=== PATIENT | female | born 1990 | race African-American/Black ===

== ENCOUNTER 2017-12-29 12:33 | Emergency (ER) | payer SELFPAY ==
[~2017-12-29] VITALS: Ht 172.7 cm; Wt 118.0 kg
[2017-12-29] MEDS ORDERED: KETOROLAC 60MG/2ML VIAL IM ONE (22:30)
[2017-12-29] MEDS ORDERED: METHOCARBAMOL 750MG TABLET PO ONE (22:30)
[2017-12-29] MEDS ORDERED: PREDNISONE 20MG TABLET PO ONE (22:30)
[2017-12-29 23:50] VITALS: BP 155/85
== END 2017-12-29 23:55 | disposition home or self-care (01) ==
LOC: ER 13:15
DX: M54.30 Sciatica, unspecified side (principal); F17.200 Nicotine dependence, unspecified, uncomplicated
CPT/HCPCS: 96372; 99283; J1885; J7030; J7512

== ENCOUNTER 2018-06-20 17:07 | Emergency (ER) | payer MEDICAID, OTHER ==
[~2018-06-20] VITALS: Ht 172.7 cm; Wt 104.0 kg
[2018-06-20 21:35] LABS: CLARITY URINE CLEAR (CLEAR); COLOR URINE YELLOW (YELLOW); KETONES URINE TRACE (NEGATIVE); LEUKOCYTE ESTERASE URINE NEGATIVE (NEGATIVE); NITRITE URINE NEGATIVE (NEGATIVE); OCCULT BLOOD URINE NEGATIVE (NEGATIVE); PH URINE 6.5 (4.5-8.0); PROTEIN URINE NEGATIVE (NEGATIVE); SPECIFIC GRAVITY URINE 1.021 (1.005-1.030); UROBILINOGEN URINE 0.2 E.U./dL (0.2-1.0)
[2018-06-20] MEDS ORDERED: ONDANSETRON HCL 4MG/2ML INJ IV STA (21:44)
[2018-06-20] MEDS ORDERED: MORPHINE SULFATE 4 MG/ML CPJ (NOT FOR IM USE) IV STA (21:44)
[2018-06-20] MEDS ORDERED: SODIUM CHLORIDE 0.9% 1,000 ML IV ONE (21:44)
[2018-06-20 23:05] LABS: BASOPHILS % 0.7 % (0.0-2.0); CHLORIDE 103 mEq/L (98-107); EOSINOPHILS % 0.8 % (0.0-5.0); HEMATOCRIT. 36.5 % (36.0-48.0); HEMOGLOBIN. 11.8 g/dL (12.0-16.0); MEAN CORPUSCULAR HEMOGLOBIN 26.8 pg (28.0-32.0); MEAN CORPUSCULAR VOLUME 83.1 fL (81.0-99.0); MEAN PLATELET VOLUME 8.3 fl (7.4-10.4); MONOCYTES % 5.3 % (2.0-8.0); NEUTROPHILS % 57.2 % (40.0-76.0); PLATELET 374 x1000/uL (130-400); PROTHROMBIN TIME 10.4 sec (9.1-11.1); RED BLOOD CELL COUNT 4.39 mill/uL (4.2-5.4); RED CELL DISTRIBUTION WIDTH 14.9 % (11.6-14.6)
[2018-06-20 23:10] LABS: ETHANOL BLOOD < 10 mg/dL
[2018-06-20 23:18] LABS: HCG SCREEN NEGATIVE
[2018-06-21] MEDS ORDERED: KETOROLAC 30MG/ML VIAL IV ONE (00:15)
[2018-06-21] MEDS ORDERED: MORPHINE SULFATE 4 MG/ML CPJ (NOT FOR IM USE) IV ONE (00:15)
[2018-06-21 01:07] VITALS: BP 152/91
== END 2018-06-21 01:10 | disposition home or self-care (01) ==
LOC: ER 17:07
DX: R10.11 Right upper quadrant pain (principal); R11.2 Nausea with vomiting, unspecified
CPT/HCPCS: 36415; 74176; 80053; 81003; 81025; 83690; 84703; 85025; 85610; 96361; 96374; 96375; 96376; 99285; G0482; J1885; J2270; J2405; J7030; Z7610

== ENCOUNTER 2022-08-06 01:55 | Emergency (ER) | payer MEDICAID, OTHER ==
[~2022-08-06] VITALS: Ht 175.3 cm; Wt 123.6 kg
[2022-08-06] MEDS ORDERED: LIDOCAINE HCL 2% JELLY 5ML TOP ONE (03:30)
[2022-08-06] MEDS ORDERED: PHEN51GE9 TP (04:36)
[2022-08-06 06:40] VITALS: BP 143/66
== END 2022-08-06 06:40 | disposition home or self-care (01) ==
LOC: ER 01:55
DX: K64.4 Residual hemorrhoidal skin tags (principal); I49.8 Other specified cardiac arrhythmias; F17.210 Nicotine dependence, cigarettes, uncomplicated
CPT/HCPCS: 93005; 99283

== ENCOUNTER 2024-10-22 12:19 | Emergency (ER) | payer OTHER ==
[~2024-10-22] VITALS: Ht 172.7 cm; Wt 130.0 kg
[~2024-10-22 12:19] MED LIST: PHEN51GE9 TP
[2024-10-22 12:24] VITALS: TEMP 36.8; O2SAT 98
[2024-10-22] MEDS ORDERED: AMLODIPINE 10MG TABLET PO ONE (13:30)
[2024-10-22] MEDS ORDERED: MECLIZINE 25MG TABLET PO ONE (13:30)
[2024-10-22 14:29] LABS: BASOPHILS % 0.8 % (0.0-2.0); EOSINOPHILS % 1.7 % (0.0-5.0); HEMATOCRIT. 36.9 % (36.0-48.0); HEMOGLOBIN. 12.2 g/dL (12.0-16.0); LYMPHOCYTES % 32.4 % (20.0-50.0); MEAN CORPUSCULAR HEMOGLOBIN 26.7 pg (28.0-32.0); MEAN CORPUSCULAR HGB CONC 32.9 g/dL (31.0-37.0); MEAN CORPUSCULAR VOLUME 81.2 fL (81.0-99.0); MEAN PLATELET VOLUME 8.6 fl (7.4-10.4); MONOCYTES % 5.9 % (2.0-8.0); NEUTROPHILS % 59.2 % (40.0-76.0); PLATELET 432 x1000/uL (130-400); RED BLOOD CELL COUNT 4.54 mill/uL (4.2-5.4); RED CELL DISTRIBUTION WIDTH 14.7 % (11.6-14.6); WHITE BLOOD COUNT 8.9 x1000/uL (4.5-11.0)
[2024-10-22 14:30] LABS: CHLORIDE 106 mEq/L (98-107); POTASSIUM 3.7 mEq/L (3.5-5.1); SODIUM 139 mEq/L (136-145)
[2024-10-22 14:31] LABS: CARBON DIOXIDE 25 mEq/L (21-32)
[2024-10-22] MEDS: DIPHENHYDRAMINE 50MG/ML VIAL IV ONE (14:31)
[2024-10-22] MEDS: METOCLOPRAMIDE HCL 10MG/2ML VIAL IV ONE (14:31)
[2024-10-22] MEDS: SODIUM CHLORIDE 0.9% 1,000 ML IV ONE (14:31)
[2024-10-22] MEDS: ONDANSETRON HCL 4MG/2ML INJ IV STA (14:31)
[2024-10-22] MEDS: KETOROLAC 30MG/ML VIAL IV STA (14:31)
[2024-10-22 14:32] LABS: CALCIUM 9.2 mg/dL (8.7-10.4)
[2024-10-22 14:36] LABS: CREATININE 0.8 mg/dL (0.6-1.0); GLUCOSE 143 mg/dL (70-105); UREA NITROGEN BLOOD 9 mg/dL (9-23)
[2024-10-22 14:47] LABS: HCG SCREEN NEGATIVE
[2024-10-22 15:01] LABS: TROPONIN I HIGH SENSITIVITY < 4 ng/L (3.0-34)
[2024-10-22] MEDS: IOHEXOL-350 100 ML BOTTLE ONE (15:55)
[2024-10-22] MEDS: MECLIZINE 25MG TABLET PO NR (15:55)
[2024-10-22] MEDS: AMLODIPINE 5MG TABLET PO NR (15:58)
[2024-10-22] MEDS ORDERED: IBUP-2028 MT (16:21)
[2024-10-22 16:30] VITALS: BP 117/71; PULSE 76; RESP 16; O2SAT 100
[2024-10-22] MEDS ORDERED: IOHEXOL-350 100 ML BOTTLE ONE (23:29)
== END 2024-10-22 17:02 | disposition home or self-care (01) ==
LOC: ER 12:25
DX: R51.9 Headache, unspecified (principal); R42 Dizziness and giddiness; E11.9 Type 2 diabetes mellitus without complications; I10 Essential (primary) hypertension; Z79.899 Other long term (current) drug therapy
CPT/HCPCS: 99285; 70496; 96374; 96375; 71045; 80048; 84703; 85025; 84484; 36415; 70498; 93005; 70450; J1885; Q9967; J8597; J1200; J2765; J2405; J7030

== ENCOUNTER 2024-12-09 17:32 | Emergency (ER) | payer OTHER ==
[~2024-12-09] VITALS: Ht 175.3 cm; Wt 86.0 kg
[~2024-12-09 17:32] MED LIST changes: +IBUP-2028 MT
[2024-12-09 17:35] VITALS: O2SAT 100
[2024-12-09] MEDS: FAMOTIDINE 20MG/2ML VIAL IV STA (18:11)
[2024-12-09] MEDS: ONDANSETRON HCL 4MG/2ML INJ IV STA (18:13)
[2024-12-09] MEDS: SODIUM CHLORIDE 0.9% 1,000 ML IV ONE (18:13)
[2024-12-09 18:17] LABS: BASOPHILS % 0.6 % (0.0-2.0); DIFFERENTIAL COMMENT 0; EOSINOPHILS % 0.6 % (0.0-5.0); HEMOGLOBIN. 12.8 g/dL (12.0-16.0); LYMPHOCYTES % 19.5 % (20.0-50.0); MEAN CORPUSCULAR HEMOGLOBIN 25.6 pg (28.0-32.0); MEAN PLATELET VOLUME 9.2 fl (7.4-10.4); MONOCYTES % 4.7 % (2.0-8.0); NEUTROPHILS % 74.6 % (40.0-76.0); PLATELET 428 x1000/uL (130-400); WHITE BLOOD COUNT 8.7 x1000/uL (4.5-11.0)
[2024-12-09 18:26] LABS: PROTHROMBIN TIME 10.4 sec (9.6-11.0)
[2024-12-09 18:34] LABS: CHLORIDE 102 mEq/L (98-107); POTASSIUM 3.8 mEq/L (3.5-5.1); SODIUM 137 mEq/L (136-145)
[2024-12-09 18:35] LABS: CALCIUM 10.2 mg/dL (8.7-10.4); CARBON DIOXIDE 21 mEq/L (21-32)
[2024-12-09 18:39] LABS: HCG SCREEN NEGATIVE
[2024-12-09 18:40] LABS: GLUCOSE 297 mg/dL (70-105); UREA NITROGEN BLOOD 8 mg/dL (9-23)
[2024-12-09 18:42] LABS: ALANINE AMINOTRANSFERASE 14 IU/L (10-49); ALBUMIN 4.8 g/dL (3.2-4.8); ASPARTATE AMINOTRANSFERASE 13 IU/L (<34); BILIRUBIN DIRECT < 0.1 mg/dL (<=3.0)
[2024-12-09 18:43] LABS: BILIRUBIN TOTAL 0.3 mg/dL (0.1-1.0); PROTEIN TOTAL 8.7 g/dL (6.0-8.3)
[2024-12-09 18:53] LABS: TROPONIN I HIGH SENSITIVITY < 4 ng/L (3.0-34)
[2024-12-09 19:31] VITALS: TEMP 36.7
[2024-12-09] MEDS: MORPHINE SULFATE 4 MG/ML INJ (FOR IV/IM USE) IV ONE (19:54)
[2024-12-09 20:44] LABS: CLARITY URINE CLEAR (CLEAR); COLOR URINE YELLOW (YELLOW); GLUCOSE URINE 3+ (NEGATIVE); KETONES URINE 2+ (NEGATIVE); LEUKOCYTE ESTERASE URINE NEGATIVE (NEGATIVE); NITRITE URINE NEGATIVE (NEGATIVE); OCCULT BLOOD URINE 2+ (NEGATIVE); PROTEIN URINE NEGATIVE (NEGATIVE); SPECIFIC GRAVITY URINE 1.068 (1.005-1.030); UROBILINOGEN URINE 0.2 E.U./dL (0.2-1.0)
[2024-12-09 20:55] LABS: WBC URINE 0-2 /hpf (0-2)
[2024-12-09 20:56] LABS: BACTERIA URINE TRACE; SQUAMOUS EPITHELIAL CELL URINE 1+ /lpf (RARE/1+)
[2024-12-09 22:00] VITALS: BP 157/96; PULSE 81; RESP 12; O2SAT 100
[2024-12-09] MEDS ORDERED: IOHEXOL-300 100 ML BOTTLE ONE (23:13)
== END 2024-12-09 22:00 | disposition short-term general hospital (02) ==
LOC: ER 17:32
DX: K92.2 Gastrointestinal hemorrhage, unspecified (principal); E11.9 Type 2 diabetes mellitus without complications; I10 Essential (primary) hypertension; Z79.899 Other long term (current) drug therapy
CPT/HCPCS: 80076; 80048; 81003; 84703; 83880; 83605; 83690; 85025; 85610; 84484; 36415; 74177; 96361; 96374; 96375; 99285; Q9967; J3490; J2405; J2270; J7030; Z7610 ×2; A4606

== ENCOUNTER 2025-04-19 11:37 | Emergency (ER) | payer OTHER ==
[~2025-04-19] VITALS: Ht 175.3 cm; Wt 127.0 kg
[2025-04-19 11:54] VITALS: O2SAT 100
[2025-04-19 12:48] LABS: BASOPHILS % 0.7 % (0.0-2.0); EOSINOPHILS % 2.1 % (0.0-5.0); HEMATOCRIT. 35.3 % (36.0-48.0); HEMOGLOBIN. 11.5 g/dL (12.0-16.0); LYMPHOCYTES % 30.8 % (20.0-50.0); MEAN PLATELET VOLUME 7.9 fl (7.4-10.4); MONOCYTES % 7.3 % (2.0-8.0); NEUTROPHILS % 59.1 % (40.0-76.0); PLATELET 438 x1000/uL (130-400); RED BLOOD CELL COUNT 4.47 mill/uL (4.2-5.4); RED CELL DISTRIBUTION WIDTH 19.4 % (11.6-14.6)
[2025-04-19 13:02] LABS: INR 0.9
[2025-04-19 13:06] LABS: HCG SCREEN NEGATIVE
[2025-04-19 13:07] LABS: CREATININE 0.9 mg/dL (0.6-1.0); UREA NITROGEN BLOOD 9 mg/dL (9-23)
[2025-04-19 13:08] LABS: TROPONIN I HIGH SENSITIVITY < 4 ng/L (3.0-34)
[2025-04-19 14:09] VITALS: BP 138/92; PULSE 77; RESP 14; TEMP 36.9; O2SAT 100
== END 2025-04-19 14:11 | disposition home or self-care (01) ==
LOC: ER 11:37
DX: R42 Dizziness and giddiness (principal); M79.10 Myalgia, unspecified site; F41.9 Anxiety disorder, unspecified; E11.9 Type 2 diabetes mellitus without complications; I10 Essential (primary) hypertension
CPT/HCPCS: 36415; 71045; 80048; 84484; 84703; 85025; 93005; 99285

== ENCOUNTER 2025-04-26 19:00 | Inpatient (IN) | payer OTHER ==
[2025-04-25 04:00] VITALS: BP 136/91; PULSE 93; RESP 17; TEMP 37.1; O2SAT 98
[~2025-04-26] VITALS: Ht 172.7 cm; Wt 113.4 kg
[2025-04-26 19:16] VITALS: O2SAT 100
[2025-04-26 20:04] LABS: BASOPHILS % 1.4 % (0.0-2.0); EOSINOPHILS % 2.2 % (0.0-5.0); HEMATOCRIT. 33.5 % (36.0-48.0); HEMOGLOBIN. 10.9 g/dL (12.0-16.0); LYMPHOCYTES % 45.4 % (20.0-50.0); MEAN PLATELET VOLUME 8.1 fl (7.4-10.4); MONOCYTES % 6.5 % (2.0-8.0); NEUTROPHILS % 44.5 % (40.0-76.0); PLATELET 413 x1000/uL (130-400); RED BLOOD CELL COUNT 4.22 mill/uL (4.2-5.4); RED CELL DISTRIBUTION WIDTH 18.5 % (11.6-14.6)
[2025-04-26 20:13] LABS: CREATININE 1.0 mg/dL (0.6-1.0); UREA NITROGEN BLOOD 11 mg/dL (9-23)
[2025-04-26 20:14] LABS: TROPONIN I HIGH SENSITIVITY < 4 ng/L (3.0-34)
[2025-04-26 22:29] LABS: CLARITY URINE CLEAR (CLEAR); COLOR URINE YELLOW (YELLOW); GLUCOSE URINE NEGATIVE (NEGATIVE); KETONES URINE NEGATIVE (NEGATIVE); LEUKOCYTE ESTERASE URINE NEGATIVE (NEGATIVE); NITRITE URINE NEGATIVE (NEGATIVE); OCCULT BLOOD URINE NEGATIVE (NEGATIVE); PH URINE 5.0 (4.5-8.0); PROTEIN URINE NEGATIVE (NEGATIVE); SPECIFIC GRAVITY URINE 1.027 (1.005-1.030); UROBILINOGEN URINE 0.2 E.U./dL (0.2-1.0)
[2025-04-26] MEDS: KETOROLAC 30MG/ML VIAL IM ONE (22:35)
[2025-04-26] MEDS: MECLIZINE 25MG TABLET PO ONE (23:14)
[2025-04-26] MEDS: SODIUM CHLORIDE 0.9% 1,000 ML IV ONE (23:14)
[2025-04-27] MEDS ORDERED: CLONIDINE 0.1MG TABLET PO PRN (03:00)
[2025-04-27] MEDS ORDERED: ONDANSETRON HCL 4MG/2ML INJ IV PRN (03:00)
[2025-04-27] MEDS ORDERED: DOCUSATE SODIUM 100MG CAPSULE PO PRN (03:00)
[2025-04-27] MEDS ORDERED: IPRATROPIUM/ALBUTEROL 0.5-3(2.5)MG/3ML NEB HHN PRN (03:00)
[2025-04-27] MEDS ORDERED: GUAIFENESIN 200MG/10ML SUGAR FREE UDC PO PRN (03:00)
[2025-04-27] MEDS ORDERED: ACETAMINOPHEN 325MG TABLET PO PRN ×2 (03:00)
[2025-04-27] MEDS ORDERED: DEXTROSE 50% WATER 50ML SYRINGE IV PRN (03:00)
[2025-04-27] MEDS ORDERED: LORAZEPAM 0.5MG TABLET PO PRN (03:00)
[2025-04-27 04:00] VITALS: BP 136/91; PULSE 64; PULSE 93; RESP 17; TEMP 36.3624; TEMP 37.1; O2SAT 98
[2025-04-27] MEDS: SUMATRIPTAN SUCCINATE 25MG TABLET PO SCH ×2 (04:00→05:59)
[2025-04-27] MEDS: BLOOD SUGAR DIAGNOSTIC STRIP TEST SCH (07:11)
[2025-04-27] MEDS: INSULIN LISPRO 100 UNITS/ML SUBCUT SCH (07:11)
[2025-04-27] MEDS: POTASSIUM CHLORIDE 20MEQ TABLET SR PO SCH (07:16)
[2025-04-27] MEDS ORDERED: AMLO10TA80 PO (07:35)
[2025-04-27] MEDS ORDERED: TIRZ2.5P (07:35)
[2025-04-27 08:00] VITALS: BP 113/77; PULSE 71; RESP 18; TEMP 36.9; O2SAT 98
[2025-04-27] MEDS: AMLODIPINE 5MG TABLET PO SCH (08:38)
[2025-04-27] MEDS: KETOROLAC 15MG/ML VIAL IV PRN (09:32)
[2025-04-27] MEDS ORDERED: IMIT25 PO (09:33)
[2025-04-27 10:37] LABS: *AMPHETAMINES SCREEN URINE NEGATIVE (NEGATIVE); *BARBITURATES SCREEN URINE NEGATIVE (NEGATIVE); *BENZODIAZEPINES SCREEN URINE NEGATIVE (NEGATIVE); *COCAINE SCREEN URINE NEGATIVE (NEGATIVE); CANNABINOID URINE SCREEN PRESUMPTIVE POSITIVE (NEGATIVE); ECSTASY MDMA SCREEN URINE NEGATIVE (NEGATIVE); METHADONE URINE SCREEN NEGATIVE (NEGATIVE); OPIATES URINE SCREEN NEGATIVE (NEGATIVE); PHENCYCLIDINE URINE SCREEN NEGATIVE (NEGATIVE)
[2025-04-27 11:10] VITALS: BP 128/85; PULSE 84; RESP 18; TEMP 97.7
[2025-04-27 12:00] VITALS: BP 128/85; PULSE 84; RESP 18; TEMP 36.5; O2SAT 99
[2025-04-27 12:02] LABS: TRIGLYCERIDE 144.0 mg/dL (0-150)
[2025-04-27 12:03] LABS: LDL CHOLESTEROL 92.0 mg/dL (5-100)
== END 2025-04-27 14:05 | disposition home or self-care (01) | DRG 54 ==
LOC: ER 19:00 → 5WST 04-27 00:25 → EDBEDREQDT 04-27 00:33 → EDBEDREQTM 04-27 00:33 → EDBEDREQ 04-27 00:33 → ENRESERV 04-27 02:51
PROVIDERS: ADMIT Internal Medicine; ATTEND Internal Medicine
DX: G43.909 Migraine, unspecified, not intractable, without status migrainosus (principal); E11.9 Type 2 diabetes mellitus without complications; E66.01 Morbid (severe) obesity due to excess calories; F17.210 Nicotine dependence, cigarettes, uncomplicated; I10 Essential (primary) hypertension; F41.9 Anxiety disorder, unspecified; R42 Dizziness and giddiness; Z68.38 Body mass index [BMI] 38.0-38.9, adult
CPT/HCPCS: 36415; 71045; 80048; 80061; 80305; 81003; 82962; 83036; 84484; 85025; 93005; 99285; J1885; J7030; J8597